=== PATIENT | male | born 1980 | race Caucasian/White ===

== ENCOUNTER 2020-03-19 00:58 | Emergency (ER) | payer OTHER ==
[~2020-03-19] VITALS: Ht 185 cm; Wt 63.0 kg
--- NOTE | 2020-03-19 01:17 | NUR ---
PATIENT REPORTS HIS PAIN STARTED YESTERDAY; DENIES INJURY OR ANY OTHER S/S. DENIES PAIN INCREASES WITH PALPATION OR LIGHT TOUCH. NO SIGNS OF RASH OR BLISTERING. WILL CONTINUE TO MONITOR.
--- NOTE | 2020-03-19 01:28 | ED General ---
General Chief Complaint: General Problems/Pain Stated Complaint: PAIN IN LEFT SIDE OF HEAD Nursing Triage Note: PATIENT HERE WITH PAIN TO THE LEFT SIDE OF HIS FACE STARTING AT HIS LEFT DRUZE AND RADIATING DOWN THE LEFT SIDE OF HIS FACE; STATES IT STARTED YESTERDAY WITH ONLY A LIGHT PAIN BUT PROGRESSED TO PAIN /. DENIES INCREASED PAIN WITH TOUCH; DENIES TRAUMA. NO SIGNS OF NEUR DEFICITS. Nursing Sepsis Screen: No Definite Risk Source of Information: Patient History of Present Illness Date Seen by Provider: Mar 19, 2020 Time Seen by Provider: 01:12 Initial Comments PT ARRIVES VIA POV C/O PAIN TO LEFT SIDE OF FACE SINCE MID MORNING PAIN HAS GRADUALLY GOTTEN WORSE TOOK ASPIRIN AROUND 2100 TONIGHT--NO RELIEF PAIN STARTS AT LEFT DRUZE AREA AND GOES DOWN TO LEFT TMJ AND DOWN LEFT SIDE OF FACE AND CHEEK--DOES NOT GO INTO LEFT EAR, AND DOES NOT GO TO MANDIBLE NO RASH NO CHANGES IN VISION OR HEARING NO DENTAL OR MOUTH PAIN NOTHING WORSENS PAIN--CAN CHEW WITHOUT ANY PAIN OR PROBLEMS NO FEVER NO PARESTHESIAS OR MOTOR DEFICITS NO URI SYMPTOMS OR COUGH NO SORE THROAT NO GI SYMPTOMS NO DIZZINESS NO HISTORY OF SIMILAR DENIES ANY CHRONIC HEALTH PROBLEMS AND DOES NOT TAKE ANY MEDICATION FOR ANYTHING 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 [place] PCP: NONE Allergies and Home Medications Allergies Coded Allergies: No Known Drug Allergies (Unverified , 03/19/20) Patient Home Medication List Home Medication List Reviewed: Yes Review of Systems Review of Systems Constitutional: no symptoms reported; No chills, No diaphoresis, No dizziness, No fever EENTM: see HPI; No ear discharge, No hearing loss, No ear pain, No blurred vision, No double vision, No eye pain, No tearing, No vision loss, No dental problems, No hoarseness, No mouth pain, No mouth swelling, No nose congestion, No throat pain, No throat swelling Respiratory: no symptoms reported; No cough, No short of breath, No wheezing Cardiovascular: no symptoms reported; No chest pain, No edema, No palpitations, No syncope Gastrointestinal: no symptoms reported; No abdominal pain, No nausea, No vomiting Genitourinary: no symptoms reported Musculoskeletal: no symptoms reported; No back pain Skin: no symptoms reported; No rash Psychiatric/Neurological: See HPI; Denies Numbness, Denies Paresthesia, Denies Seizure, Denies Tingling, Denies Tremors, Denies Weakness Hematologic/Lymphatic: No Symptoms Reported Immunological/Allergic: no symptoms reported Past Mghsnhh-Awqpcb-Tykrqi Hx Patient Social History Alcohol Use: Regular Use (DRINKS ON WEEKENDS) Recreational Drug Use: Yes (THC) Drug of Choice: MARIJUANA Smoking Status: Current Everyday Smoker (1-2 PPD) Recent Foreign Travel: No Contact w/Someone Who Travel: No Recent Infectious Disease Expo: No Recent Hopitalizations: No Past Medical History Surgeries: No Respiratory: No Cardiac: No Neurological: No Genitourinary: No Gastrointestinal: No Musculoskeletal: No Endocrine: No HEENT: No Cancer: No Psychosocial: No Integumentary: No Blood Disorders: No Physical Exam Vital Signs Vital Signs - First Documented 03/19/20 01:10 Temp 36.8 Pulse 77 Resp 18 B/P (MAP) 117/77 (90) Pulse Ox 99 O2 Delivery Room Air Capillary Refill : Less Than 3 Seconds Height, Weight, BMI Height: '" Weight: lbs. oz. kg; 18.00 BMI Method: General Appearance: No Apparent Distress, WD/WN, Thin, Other (DOES NOT APPEAR ILL OR TO BE IN ANY DISCOMFORT OR DISTRESS) HEENT: PERRL/EOMI, TMs Normal, Normal ENT Inspection, Pharynx Normal, Moist Mucous Membranes, Other (POOR DENTITION, BUT NO EVIDENCE OF DENTAL ABSCESS AND NO DENTAL TENDERNESS. NO TRISMUS. NO TENDERNESS TO FACE. 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 Norm as Tested; No Abnormal Cerebellar Tests Skin: Normal Color, Warm/Dry; No Rash Progress/Results/Core Measures Suspected Sepsis Recent Fever Within 48 Hours: No Infection Criteria Present: None New/Unexplained Altered Menta: No Sepsis Screen: No Definite Risk SIRS Temperature: Pulse: 77 Respiratory Rate: 18 Laboratory Tests 03/19/20 01:28: White Blood Count 10.5 Blood Pressure 117 /77 Mean: 90 Laboratory Tests 03/19/20 01:28: Creatinine 0.99, Platelet Count 300, Total Bilirubin 0.4 Results/Orders Lab Results Laboratory Tests Test 03/19/20 01:28 Range/Units White Blood Count 10.5 4.3-11.0 10^3/uL Red Blood Count 4.76 4.35-5.85 10^6/uL Hemoglobin 14.6 13.3-17.7 G/DL Hematocrit 42 40-54 % Mean Corpuscular Volume 89 80-99 FL Mean Corpuscular Hemoglobin 31 25-34 PG Mean Corpuscular Hemoglobin Concent 35 32-36 G/DL Red Cell Distribution Width 12.2 10.0-14.5 % Platelet Count 300 130-400 10^3/uL Mean Platelet Volume 9.3 7.4-10.4 FL Neutrophils (%) (Auto) 75 42-75 % Lymphocytes (%) (Auto) 18 12-44 % Monocytes (%) (Auto) 6 0-12 % Eosinophils (%) (Auto) 1 0-10 % Basophils (%) (Auto) 0 0-10 % Neutrophils # (Auto) 7.9 H 1.8-7.8 X 10^3 Lymphocytes # (Auto) 1.8 1.0-4.0 X 10^3 Monocytes # (Auto) 0.7 0.0-1.0 X 10^3 Eosinophils # (Auto) 0.1 0.0-0.3 10^3/uL Basophils # (Auto) 0.0 0.0-0.1 10^3/uL Erythrocyte Sedimentation Rate 5 0-15 MM/HR Sodium Level 141 135-145 MMOL/L Potassium Level 4.1 3.6-5.0 MMOL/L Chloride Level 106 98-107 MMOL/L Carbon Dioxide Level 23 21-32 MMOL/L Anion Gap 12 5-14 MMOL/L Blood Urea Nitrogen 19 H 7-18 MG/DL Creatinine 0.99 0.60-1.30 MG/DL Estimat Glomerular Filtration Rate > 60 BUN/Creatinine Ratio 19 Glucose Level 111 H 70-105 MG/DL Calcium Level 9.6 8.5-10.1 MG/DL Corrected Calcium 8.5-10.1 MG/DL Magnesium Level 1.9 1.6-2.4 MG/DL Total Bilirubin 0.4 0.1-1.0 MG/DL Aspartate Amino Transf (AST/SGOT) 20 5-34 U/L Alanine Aminotransferase (ALT/SGPT) 18 0-55 U/L Alkaline Phosphatase 76 40-136 U/L C-Reactive Protein High Sensitivity 0.03 0.00-0.50 MG/DL Total Protein 7.8 6.4-8.2 GM/DL Albumin 4.6 H 3.2-4.5 GM/DL My Orders Orders - CHAN APPIAH DO Ct Head/Maxillofacial Wo (03/19/20 01:22) Ed Iv/Invasive Line Start (03/19/20 01:22) Cbc With Automated Diff (03/19/20:22) Comprehensive Metabolic Panel (03/19/20:22) Hs C Reactive Protein (03/19/20:22) Erythrocyte Sedimentation Rate (03/19/20:22) Magnesium (03/19/20 01:22) Ketorolac Injection (Toradol Injection) (03/19/20 02:35) Ceftriaxone For Iv Use (Rocephin For I (03/19/20 02:45) Vital Signs/I&O 03/19/20 03/19/20 01:10 01:44 Temp 36.8 Pulse 77 68 Resp 18 18 B/P (MAP) 117/77 (90) 112/66 (81) Pulse Ox 99 100 O2 Delivery Room Air Room Air Capillary Refill : Less Than 3 Seconds Blood Pressure Mean: [address] HEAD/MAXILLOFACIALS--MINIMAL MUCOPERIOSTESAL THICKENING OF LEFT MAXILLARY SINUS, OTHERWISE NO ACUTE PROCESS--PER [facility] VIA FAX AT [id number] Reviewed: Reviewed by Me Departure Impression Primary Impression: Left facial pain Additional Impression: Left maxillary sinusitis Disposition: HOME, SELF-CARE Condition: Stable Departure-Patient Inst. Referrals: NO,LOCAL PHYSICIAN (PCP/Family) Primary Care Physician Patient Instructions: Headache, Adult (DC), Sinus Headache (DC), Sinusitis, Adult (DC) Add. Discharge Instructions: TYLENOL NEEDED FOR PAIN OR FEVER FOLLOW UP WITH OF QUAN IN 3-4 DAYS IF NO BETTER, RETURN TO ER IF SYMPTOMS WORSEN All discharge instructions reviewed with patient and/or family. Voiced understanding. Scripts Meloxicam (Mobic) 15 Mg Tablet 15 MG PO DAILY, #10 TAB Prov: CHAN APPIAH DO 03/19/20 Fluticasone Propionate (Flonase Allergy Relief) 9.9 Ml [place].susp 2 SPRAY NS DAILY, #1 EACH 2 SPRAYS PER NOSTRIL DAILY X 2 DAYS THEN 1 SPRAY DAILY Prov: CHAN APPIAH DO 03/19/20 Cefdinir (Cefdinir) 300 Mg Capsule 300 MG PO BID, #20 CAP Prov: CHAN APPIAH DO 03/19/20 CHAN APPIAH DO Mar 19, 2020 01:28
[2020-03-19 01:38] LABS: BASOPHILS % (AUTO) 0 % (0-10); EOSINOPHILS # (AUTO) 0.1 10^3/uL (0.0-0.3); EOSINOPHILS % (AUTO) 1 % (0-10); HEMATOCRIT 42 % (40-54); HEMOGLOBIN 14.6 G/DL (13.3-17.7); LYMPHOCYTES # (AUTO) 1.8 X 10^3 (1.0-4.0); LYMPHOCYTES % (AUTO) 18 % (12-44); MEAN CORPUSCULAR HEMOGLOBIN 31 PG (25-34); MEAN CORPUSCULAR HGB CONC 35 G/DL (32-36); MEAN CORPUSCULAR VOLUME 89 FL (80-99); MEAN PLATELET VOLUME 9.3 FL (7.4-10.4); MONOCYTES # (AUTO) 0.7 X 10^3 (0.0-1.0); MONOCYTES % (AUTO) 6 % (0-12); NEUTROPHILS # (AUTO) 7.9 X 10^3 (1.8-7.8); NEUTROPHILS % (AUTO) 75 % (42-75); PLATELET COUNT 300 10^3/uL (130-400); WHITE BLOOD COUNT 10.5 10^3/uL (4.3-11.0)
[2020-03-19 01:44] VITALS: BP 112/66
[2020-03-19 01:48] LABS: ALBUMIN 4.6 GM/DL (3.2-4.5); CHLORIDE 106 MMOL/L (98-107); POTASSIUM 4.1 MMOL/L (3.6-5.0); SODIUM 141 MMOL/L (135-145)
[2020-03-19 01:50] LABS: CALCIUM 9.6 MG/DL (8.5-10.1)
[2020-03-19 01:51] LABS: GLUCOSE 111 MG/DL (70-105); TOTAL PROTEIN 7.8 GM/DL (6.4-8.2)
[2020-03-19 01:52] LABS: BILIRUBIN,TOTAL 0.4 MG/DL (0.1-1.0); CARBON DIOXIDE 23 MMOL/L (21-32)
[2020-03-19 01:54] LABS: ALKALINE PHOSPHATASE 76 U/L (40-136)
[2020-03-19 01:55] LABS: CREATININE SERUM 0.99 MG/DL (0.60-1.30); GFR ESTIMATED > 60
--- NOTE | 2020-03-19 01:55 | NUR ---
PT TO CT BY W/C.
[2020-03-19 01:56] LABS: BUN/CREATININE RATIO 19
[2020-03-19 01:57] LABS: ALANINE AMINOTRANSFERASE 18 U/L (0-55); MAGNESIUM 1.9 MG/DL (1.6-2.4)
--- NOTE | 2020-03-19 02:07 | NUR ---
PT BACK FROM CT.
[2020-03-19 02:22] LABS: ERYTHROCYTE SEDIMENTATION RATE 5 MM/HR (0-15)
[2020-03-19] MEDS ORDERED: KETOROLAC 30 MG/ML VIAL IVP STA (02:35)
[2020-03-19] MEDS ORDERED: CEFD300C3 PO (02:41)
[2020-03-19] MEDS ORDERED: MELO15TA14 PO (02:41)
[2020-03-19] MEDS ORDERED: FLUT9.9S NS (02:41)
[2020-03-19] MEDS ORDERED: cefTRIAXone FOR IV USE 1,000 MG in WATER (STERILE) FOR INJECTION 10 ML IV ONE (02:45)
[2020-03-19 03:06] VITALS: BP 112/66
--- NOTE | 2020-03-19 06:51 | Diagnostic Imaging Report ---
PROCEDURE: CT head and maxillofacial without contrast. TECHNIQUE: Multiple contiguous axial images were obtained through the head and facial bones without the use of intravenous contrast. Auto Exposure Controls were utilized during the CT exam to meet ALARA standards for radiation dose reduction. INDICATION: Headache. Left-sided facial pain. Status post trauma. COMPARISON: None FINDINGS: CT HEAD: Ventricles and cortical sulci are normal in size and contour. There is no midline shift or mass-effect. No acute intra-axial hemorrhage is seen. There are no abnormal areas of increased or decreased density to suggest acute hemorrhage or edema. No extra-axial masses or collections are present. The bony calvarium is intact. CT FACIAL BONES: There is no acute fracture or dislocation of the facial bones. Bilateral medial and lateral pterygoid plates are intact. There is no fracture of the zygomatic arches. There is no fracture or dislocation of the mandible. Paranasal sinuses show mild scattered mucosal thickening. No abnormal air-fluid levels are seen. There is no acute fracture of the paranasal sinuses. Nasal septum shows slight hooking to the right, but is otherwise intact. Nasal bones are intact as well. There is no fracture of the orbits. Globes are symmetric. No unexpected radiopaque foreign bodies are seen. Superficial soft tissues of the face show no additional acute abnormalities. Note is made of multiple advanced dental caries, particularly involving the left mandibular and maxillary molars. There is prominent lucency surrounding left maxillary molar with erosion of the floor of the maxillary sinus. IMPRESSION: 1. No acute intracranial abnormality. No CT evidence of mass, acute infarct or intracranial hemorrhage. 2. No acute fracture or dislocation of the facial bones. 3. Multiple advanced maxillary and mandibular caries, particularly involving the left maxilla. Again, there is periapical lucency with erosion of the floor of the maxillary sinus. Findings can be seen with periapical abscess. Dental consultation is recommended. Dictated by: Dictated on workstation # [id number]
== END 2020-03-19 03:06 | disposition home or self-care (01) ==
LOC: ER 01:02
DX: J32.0 Chronic maxillary sinusitis (principal); F17.210 Nicotine dependence, cigarettes, uncomplicated
CPT/HCPCS: 36415; 70450; 70486; 80053; 83735; 85025; 85652; 86141